=== PATIENT | male | born 1990 | race Caucasian/White ===

== ENCOUNTER 2018-05-24 16:29 | Emergency (ER) | payer OTHER ==
[2018-05-24 16:51] VITALS: BP 144/74
--- NOTE | 2018-05-24 17:29 | UC ---
Complaint Male HPI - HPI Summary HPI Summary: 27-year-old male 27-year-old male comes in with chief complaint of dysuria. Been going on for several days. His pain is primarily in the tip of the urethra although it is also more proximal. Denies any discharge or skin lesions. Patient denies any concern for STI. No fevers or chills. No suprapubic pain. Has chronic low back pain that is not noticed being worse than usual. - History of Current Complaint Chief Complaint: UCGU Stated Complaint: FREQUENT URINATION Time Seen by Provider: 05/24/18 17:14 Pain Intensity: 6 - Allergies/Home Medications Allergies/Adverse Reactions: Allergies Allergy/AdvReac Type Severity Reaction Status Date / Time amoxicillin Allergy Severe Rash Verified 05/24/18 16:53 PMH/Surg Hx/FS Hx/Imm Hx Previously Healthy: Yes GI/ History: Gastroesophageal Reflux - Surgical History Surgical History: Yes Surgery Procedure, Year, and Place: EAR TUBES WHEN YOUNG. adnoids removed - Family History Known Family History: Positive: None - Social History Alcohol Use: Weekly Substance Use Type: None Smoking Status (MU): Never Smoked Tobacco Type: Cigars Amount Used/How Often: 10 per year Review of Systems All Other Systems Reviewed And Are Negative: Yes Constitutional: Positive: Negative Skin: Positive: Negative Eyes: Positive: Negative ENT: Positive: Negative Respiratory: Positive: Negative Cardiovascular: Positive: Negative Gastrointestinal: Positive: Negative Genitourinary: Positive: Dysuria, Frequency, Urgency. Negative: Vaginal/Penile Discharge Motor: Positive: Negative Neurovascular: Positive: Negative Musculoskeletal: Positive: Negative Neurological: Positive: Negative Psychological: Positive: Negative Is Patient Immunocompromised?: No Physical Exam Triage Information Reviewed: Yes Appearance: Well-Appearing, No Pain Distress, Well-Nourished Vital Signs: Initial Vital Signs Temp 98.5 F 05/24/18 16:45 Pulse 58 05/24/18 16:45 Resp 16 05/24/18 16:45 BP 144/74 05/24/18 16:45 Pulse Ox 99 05/24/18 16:45 Vital Signs Reviewed: Yes Eye Exam: Normal Eyes: Positive: Conjunctiva Clear Neck exam: Normal Neck: Positive: Supple Respiratory: Positive: Lungs clear, Normal breath sounds, No respiratory distress Cardiovascular: Positive: RRR Abdomen Description: Positive: Nontender, Bruit, CVA Tenderness (R) - REPORTS CHRONIC LOW BACK PAIN, CVA Tenderness (L). Negative: Distended Male Genital Exam: Positive: Normal Genitalia. Negative: Inguinal Tenderness, Lesions, Scrotum Tenderness (R), Scrotum Tenderness (L), Testicular Tenderness ( R), Testicular Tenderness (L), Urethral Discharge Musculoskeletal Exam: Normal Musculoskeletal: Positive: Strength Intact, ROM Intact Neurological Exam: Normal Neurological: Positive: Alert, Muscle Tone Normal Psychological Exam: Normal Psychological: Positive: Age Appropriate Behavior Skin Exam: Normal Complaint Male Course/Dx - Course Course Of Treatment: Patient had no obvious physical exam findings. We discussed various causes of his symptoms. Patient has not had severe flank pain on either side and has no blood in his urine therefore kidney stone is unlikely. He has no fevers side do not expect a pyelonephritis. He states no concern of STI and he has no penile drainage. If the patient does not improve consider checking for gonorrhea chlamydia. We discussed the possibility of excessive use of soap is causing irritation. Plan at this time is to treat for potential prostatitis with Bactrim by mouth twice a day for 10 days and follow- up with his primary care doctor. Patient will follow-up or return to get reevaluated sooner if worse or other questions or concerns. - Differential Dx/Diagnosis Provider Diagnosis: Dysuria Discharge - Sign-Out/Discharge Documenting (check all that apply): Patient Departure All imaging exams completed and their final reports reviewed: No Studies - Discharge Plan Condition: Stable Disposition: HOME Prescriptions: Sulfamethox/Trimethoprim DS* [Bactrim DS 800/160 TAB*] 1 tab PO BID #20 tab Patient Education Materials: Dysuria (ED) Referrals: Urbano Breen MD [Primary Care Provider] - Additional Instructions: FOLLOW UP WITH YOUR DOCTOR. GET RECHECKED FOR ANY WORSENING OF YOUR CONDITION; FEVER, PAIN, YOU FEEL ILL OR QUESTIONS OR CONCERNS. - Billing Disposition and Condition Condition: STABLE Disposition: Home
== END 2018-05-24 17:32 | disposition home or self-care (01) ==
LOC: UCEAST 16:29
DX: R30.0 Dysuria (principal); M54.5 Low back pain; G89.29 Other chronic pain; Z88.0 Allergy status to penicillin
CPT/HCPCS: 81003; 87086; 99212; G0463